=== PATIENT | female | born 1965 | race African-American/Black ===

== ENCOUNTER 2020-04-09 11:30 | Emergency (ER) | payer BC, MEDICAID ==
[~2020-04-09] VITALS: Ht 170.2 cm; Wt 122.5 kg
[2020-04-09 12:27] VITALS: BP 113/63
[2020-04-09] MEDS ORDERED: Methocarbamol 500mg tab ORAL ONE (12:30)
[2020-04-09] MEDS ORDERED: ACETAMINOPHEN500 M3 ORAL (14:34)
[2020-04-09] MEDS ORDERED: ROBAXIN-500MG ORAL (14:34)
--- NOTE | 2020-04-09 15:11 | Diagnostic Imaging Report ---
EXAM: X-RAY XRAY C Spine 2-3v CLINICAL HISTORY: Neck pain. COMPARISON: None FINDINGS: Total of 3 views of the cervical spine were obtained. Alignment is anatomic. There is no fracture, bony lesions or erosions. Diffuse spondylosis is noted with multilevel disc space narrowing. Anterior bridging osteophytes noted from C4 through C7. There is no prevertebral soft tissue swelling. Odontoid appears intact IMPRESSION: MODERATE SPONDYLOSIS. NO ACUTE BONY ABNORMALITY.
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
--- NOTE | 2020-04-09 15:41 | Diagnostic Imaging Report ---
EXAM: X-RAY XRAY Shoulder Compl L CLINICAL HISTORY: Shoulder pain. COMPARISON: None FINDINGS: Total of 3 views of the left shoulder were obtained. Alignment is anatomic. Moderate degenerative arthritis demonstrated with osteophyte formation of the humeral head and also the AC joint. Bony structures otherwise intact. Surrounding soft tissue is normal. IMPRESSION: NO FRACTURE OR MALALIGNMENT. MODERATE DEGENERATIVE CHANGES.
--- NOTE | 2020-04-09 15:43 | Diagnostic Imaging Report ---
EXAM: X-RAY XRAY Knee 3v LT CLINICAL HISTORY: Knee pain. COMPARISON: None FINDINGS: Total of 3 views of the left knee were obtained. There is a total knee prosthesis in anatomic alignment. [place] bony structures are intact. There is diffuse osteopenia. There is no fracture, bony lesions or erosions. There is no joint effusion. There is prepatellar soft tissue swelling and edema. IMPRESSION: SUPERFICIAL SOFT TISSUE SWELLING AND EDEMA IN THE PREPATELLAR SPACE. TOTAL KNEE PROSTHESIS IN PLACE. NO ACUTE BONY ABNORMALITY.
[2020-04-09 16:04] VITALS: BP 113/63
== END 2020-04-09 16:06 | disposition home or self-care (01) ==
LOC: EMR 12:15
DX: S40.012A Contusion of left shoulder, initial encounter (principal); S39.012A Strain of muscle, fascia and tendon of lower back, initial encounter; S16.1XXA Strain of muscle, fascia and tendon at neck level, initial encounter; I10 Essential (primary) hypertension; S80.00XA Contusion of unspecified knee, initial encounter; V43.62XA Car passenger injured in collision with other type car in traffic accident, initial encounter; Y92.410 Unspecified street and highway as the place of occurrence of the external cause; Z96.659 Presence of unspecified artificial knee joint
CPT/HCPCS: 72040; 99284